=== PATIENT | female | born 1950 | race Two or more races ===

== ENCOUNTER 2018-12-21 11:38 | Emergency (ER) | payer OTHER ==
[~2018-12-21] VITALS: Ht 154.9 cm; Wt 78.0 kg
[2018-12-21] MEDS ORDERED: GLUCOPHAGE XR500 MG (12:10)
[2018-12-21] MEDS ORDERED: CLARITIN10 M2 (12:11)
[2018-12-21] MEDS ORDERED: ESCITALOPRAM OX10 MG (12:11)
[2018-12-21] MEDS ORDERED: CALTRATE 600+D1 EAC1 (12:11)
[2018-12-21] MEDS ORDERED: SULFAMETHOXAZO1 EACH (12:12)
[2018-12-21] MEDS ORDERED: MUPIROCIN1 G1 (12:13)
[2018-12-21] MEDS ORDERED: AQUANIL HC120 ML (12:13)
[2018-12-21] MEDS ORDERED: PERMETHRIN60 GM TOP (12:36)
== END 2018-12-21 13:13 | disposition home or self-care (01) ==
LOC: ER 11:38
DX: B86 Scabies (principal)

== ENCOUNTER 2023-05-15 05:10 | Day surgery (SDC) | payer OTHER ==
[~2023-05-15] VITALS: Ht 154.9 cm; Wt 73.9 kg
[~2023-05-15 05:10] MED LIST: AQUANIL HC120 ML; CALTRATE 600+D1 EAC1; CLARITIN10 M2; COZAAR25 MG PO; ESCITALOPRAM OX10 MG; GLUCOPHAGE XR500 MG; LIPITOR20 MG PO; MUPIROCIN1 G1; PERMETHRIN60 GM TOP; SULFAMETHOXAZO1 EACH
[2023-05-15] MEDS ORDERED: POVIDONE-IODINE 118 ML BOTT TOP ONE ×2 (07:14→08:00)
[2023-05-15] MEDS ORDERED: ONDANSETRON HCL 2 MG/ML VIAL IV ONE (09:30)
== END 2023-05-15 11:30 | disposition home or self-care (01) ==
LOC: CIR.AMB 05:10
PROVIDERS: ATTEND Obstetrics & Gynecology
DX: N85.8 Other specified noninflammatory disorders of uterus (principal); N95.0 Postmenopausal bleeding; Z20.822 Contact with and (suspected) exposure to COVID-19; E11.9 Type 2 diabetes mellitus without complications; I10 Essential (primary) hypertension; E78.5 Hyperlipidemia, unspecified